=== PATIENT | male | born 1950 | race Two or more races ===

== ENCOUNTER 2017-04-01 13:52 | Emergency (ER) | payer MEDICARE, OTHER ==
[~2017-04-01] VITALS: Ht 160 cm; Wt 90.7 kg
--- NOTE | 2017-04-01 13:55 | NUR ---
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 A/OX 4. BREATHING EVEN AND UNLABORED. NO SOB. VITALS STABLE. SAFETY AND COMFORT MEASURES IN PLACE. AWAITING MD ORDERS.
[2017-04-01] MEDS ORDERED: KETOROLAC TROMETHAMINE INJ 30 MG/ML VIAL IV ONE (14:30)
[2017-04-01] MEDS ORDERED: DEXAMETHASONE SOD PHOSPHATE 10 MG/ML VIAL IV ONE (14:30)
[2017-04-01] MEDS ORDERED: KETOROLAC TROMETHAMINE INJ 30 MG/ML VIAL ONE (15:08)
[2017-04-01] MEDS ORDERED: DEXAMETHASONE SOD PHOSPHATE 10 MG/ML VIAL ONE (15:08)
[2017-04-01 15:38] VITALS: BP 123/64
--- NOTE | 2017-04-01 15:38 | NUR ---
Patient discharged to home in stable condition. Written and verbal after care instructions given. Patient verbalizes understanding of instruction.
--- NOTE | 2017-04-01 15:38 | NUR ---
IV removed. Catheter intact and site benign. Pressure and 4x4 applied to site. No bleeding noted.
== END 2017-04-01 15:48 | disposition home or self-care (01) ==
LOC: ER 13:54
DX: M54.32 Sciatica, left side (principal); I10 Essential (primary) hypertension; E11.9 Type 2 diabetes mellitus without complications; E66.9 Obesity, unspecified; J45.909 Unspecified asthma, uncomplicated
CPT/HCPCS: 72100; 96374; 96375; 99284; A4606; J1100; J1885; Z7610

== ENCOUNTER 2017-05-08 12:17 | Emergency (ER) | payer MEDICARE ==
[~2017-05-08] VITALS: Ht 177.8 cm; Wt 74.8 kg
--- NOTE | 2017-05-08 12:45 | NUR ---
PRESENTS TO ER C/O L LOWER EXTREMITY PAIN X 2 DAYS, DENIES ANY INJURY. A/OX 4. BREATHING EVEN AND UNLABORED. NO SOB. VITALS STABLE. SAFETY AND COMFORT MEASURES IN PLACE. AWAITING MD ORDERS.
--- NOTE | 2017-05-08 13:23 | NUR ---
AT BEDSIDE FOR EVAL.
[2017-05-08] MEDS ORDERED: ACETAMINOPHEN 325 MG TABLET PO ONE (13:30)
[2017-05-08] MEDS ORDERED: ACETAMINOPHEN ES 500 MG TABLET ONE (13:30)
--- NOTE | 2017-05-08 13:30 | NUR ---
US TECH AT BEDSIDE.
[2017-05-08 14:05] LABS: BASOPHILS # (AUTO) 0.4 /CMM (0.0-0.2); EOSINOPHILS % (AUTO) 0.2 % (0.0-6.0); HEMATOCRIT 41 % (39-51); HEMOGLOBIN 13.8 g/dL (13.5-17.5); LYMPHOCYTES % (AUTO) 27.6 % (20.0-44.0); MEAN CORPUSCULAR HEMOGLOBIN 30 PG (26.0-33.0); MEAN CORPUSCULAR HGB CONC 34 g/dl (31.0-36.0); MEAN CORPUSCULAR VOLUME 88 fL (80-96); MONOCYTES # (AUTO) 0.7 /CMM (0.1-1.30); MONOCYTES % (AUTO) 9.4 % (2.0-12.0); NEUTROPHILS # (AUTO) 4.2 /CMM (1.8-8.9); NEUTROPHILS % (AUTO) 57.3 % (43.0-81.0); PLATELET COUNT (AUTO) 276 /CMM (150-450); RDW COEFFICIENT OF VARIATION 12.6 (11.5-15.0); RED BLOOD CELL COUNT(AUTO) 4.62 MIL/uL (4.5-6.0); WHITE BLOOD COUNT (AUTO) 7.3 K/uL (4.3-11.0)
[2017-05-08 14:06] LABS: BASOPHILS % (AUTO) 5.5 % (0.0-2.0)
[2017-05-08 14:21] LABS: CREATININE 0.8 mg/dL (0.6-1.3); POTASSIUM 4.4 mmol/L (3.5-5.1)
[2017-05-08 14:55] VITALS: BP 142/69
--- NOTE | 2017-05-08 15:03 | NUR ---
Patient discharged to home in stable condition. Written and verbal after care instructions given. Patient verbalizes understanding of instruction.
== END 2017-05-08 15:02 | disposition home or self-care (01) ==
LOC: ER 12:20
DX: R60.0 Localized edema (principal); E11.9 Type 2 diabetes mellitus without complications; I10 Essential (primary) hypertension; J45.909 Unspecified asthma, uncomplicated
CPT/HCPCS: 36415; 73610; 80048; 85025; 93971; 99285; A4606; Z7610

== ENCOUNTER 2017-05-10 11:34 | Emergency (ER) | payer MEDICARE, OTHER ==
[~2017-05-10] VITALS: Ht 167.6 cm; Wt 86.2 kg
[2017-05-10 11:52] VITALS: BP 138/71
== END 2017-05-10 13:09 | disposition home or self-care (01) ==
LOC: EDUNIT# 11:34 → ER 11:36
DX: M25.572 Pain in left ankle and joints of left foot (principal); M79.1 Myalgia; I10 Essential (primary) hypertension; E11.9 Type 2 diabetes mellitus without complications; J45.909 Unspecified asthma, uncomplicated; E66.9 Obesity, unspecified
CPT/HCPCS: 73610; 99284; A4606; Z7610

== ENCOUNTER 2017-09-29 08:57 | Emergency (ER) | payer OTHER ==
[~2017-09-29] VITALS: Ht 162.6 cm; Wt 90.7 kg
[2017-09-29 08:57] VITALS: BP 126/74
== END 2017-09-29 09:32 | disposition home or self-care (01) ==
LOC: ER 08:59
DX: M54.42 Lumbago with sciatica, left side (principal); E11.9 Type 2 diabetes mellitus without complications; E66.9 Obesity, unspecified; I10 Essential (primary) hypertension; J45.909 Unspecified asthma, uncomplicated
CPT/HCPCS: 99283; A4606; Z7610